=== PATIENT | female | born 1985 | race Caucasian/White ===

== ENCOUNTER 2021-03-03 21:35 | Emergency (ER) | payer MEDICAID, SELFPAY ==
[2021-03-03 21:43] VITALS: BP 138/88; PULSE 99; RESP 18; TEMP 36.7; O2SAT 99; BMI 38.7
[2021-03-03 22:28] VITALS: BP 158/100; PULSE 108; RESP 24; TEMP 36.8; O2SAT 98
--- NOTE | 2021-03-03 22:38 | W.ED.DENTAL ---
HPI - Dental/Oral General: Chief complaint: Dental/Oral Stated complaint: Tooth Pain\ Ear and Eye Time Seen by Provider: 03/03/21 22:32 History of Present Illness: HPI Narrative: Patient comes in today for complaints of pain and discomfort to the right upper jaw. Patient appears in moderate pain. Respirations are even. Airway is intact. Patient is managing secretions well. Patient reports pain worsening over the last 3 days. Patient is incidentally 28 weeks . Review of Systems General: Reports: 10 or more systems reviewed and unremarkable except in HPI and below ENMT: Reports: dental pain Physical Exam Const: COMMON NORMALS: no acute distress and patient oriented x3 GENERAL APPEARANCE: cooperative HENMT: COMMON NORMALS: normocephalic, TM's normal bilaterally and Normal external nose present HEAD & SCALP: normal to inspection and normocephalic NOSE: Normal external nose present TYMPANIC MEMBRANE: TM's normal bilaterally MOUTH: other (Poor dentition, swelling to the upper second molar right jaw.) THROAT: posterior oropharynx normal Eye: GENERAL EYE: appearance normal, both eyes and all related structures Neck/C-Spine: COMMON NORMALS: full ROM Lymph: LYMPHATIC: no lymphadenopathy noted Chest: COMMONS NORMALS: normal inspection of the chest Resp: COMMON NORMALS: normal respiratory effort EFFORT & INSPECTION: Yes able to speak in complete sentences Cardio: COMMON NORMALS: regular rate and regular rhythm RATE: regular rate RHYTHM: regular rhythm GI: COMMON NORMALS: non-tender Back/Pelvis: COMMON NORMALS: thoracic and lumbar spine normal to inspection Extremity: COMMON NORMALS: normal to inspection Neuro: COMMON NORMALS: patient oriented x3 and moves all extremities Psych: COMMON NORMALS: mental status grossly normal and cooperative Skin: COMMON NORMALS: no rashes or lesions noted GENERAL SKIN EXAM: no rashes or lesions noted Course Vital Signs: Vital signs: Vital Signs Temperature 98.3 F 03/03/21 22:28 Pulse Rate 108 H 03/03/21 22:28 Respiratory Rate 24 H 03/03/21 22:28 Blood Pressure 158/100 03/03/21 22:28 Pulse Oximetry 98 03/03/21 22:28 MDM - Dental/Oral MDM Narrative: Medical decision making narrative: Patient comes in today for complaints of dental pain. On exam we note multiple teeth with significant decay. Patient has some swelling and redness to the right upper second molar area of the gingiva. Oral mucosa is moist. No asymmetry is noted in the posterior pharynx. Patient has good and open airway. Patient manages secretions well. Vital signs are normal. Differential diagnosis includes but not limited to dental abscess, dental pain, floor mouth cellulitis. No severe illnesses noted. We will treat with antibiotic and pain medication. Patient should follow-up with dentist. Patient reported understanding. Discharge Plan Discharge Patient Disposition: Home Clinical Impression: Dental abscess Condition: Stable Prescriptions: New hydrocodone-acetaminophen 5-325 mg tablet 1 tab PO Q6H PRN (Reason: pain) Qty: 7 RF: 0 clindamycin HCl 300 mg capsule 300 mg PO Q8H 7 Days Qty: 21 RF: 0 Discharge Orders: Discharge ED (Routine); Ordered 03/03/21 Ordered By: Abiodun Hendricks Referrals: Saji Negron MD [Primary Care Provider] - Discharge Diet: Usual diet Discharge Activity: Increase activity as tolerated Patient Instructions: Dental Abscess (ED), Opioid Safety Activity Restrictions/Additional Instructions: Drink plenty of water with medication. Take antibiotics as directed. Follow-up with dentist for definitive care. Return to the ER for new concerns. Coding Level of Care Code ED Apparel Rental Clerk for Em Rocha
[2021-03-03] MEDS: HYDROcodone-acetaminophen 5-325 mg Tablet 1 TAB PO (23:07)
[2021-03-03] MEDS: clindamycin 150 mg Capsule 300 MG PO (23:08)
[2021-03-03 23:21] VITALS: BP 158/100; PULSE 108; RESP 24; TEMP 36.8; O2SAT 98
== END 2021-03-03 23:16 | disposition home or self-care (01) ==
PROVIDERS: Emergency Provider Nurse Practitioner Family; PCP Family Medicine
DX: K04.7 Periapical abscess without sinus (principal)
CPT/HCPCS: 99283

== ENCOUNTER 2021-04-21 01:00 | Inpatient (IN) | payer MEDICAID, SELFPAY ==
[2021-04-21] VITALS (24 sets, daily range): BP systolic 113–137; BP diastolic 59–96; PULSE 53–87; RESP 15–18; TEMP 36.4–36.9; O2SAT 96–100; BMI 39.8
[2021-04-21 00:48] LABS: Nitrazine Paper, PH Inconclusive
[2021-04-21 00:57] LABS: Actim Prom Positive
[2021-04-21] MEDS: clindamycin 900 MG/50 ML PREMIX 100 MG IV (01:30)
[2021-04-21] MEDS: metoclopramide 5 mg/mL SDV 2 mL 10 MG IVP (01:44)
[2021-04-21] MEDS: lactated ringers 1,000 ML 999 ML IV (01:45)
[2021-04-21] MEDS: citric acid-sodium citrate 30 mL UDC PO (01:45)
[2021-04-21] MEDS: gentamicin inj 140 MG in sodium chloride 0.9% (100 ml) 100 ML 103.5 MG IV (01:45)
[2021-04-21] MEDS: famotidine 20 mg/2 mL INJ IVP (01:45)
--- NOTE | 2021-04-21 01:46 | PM.HP ---
Providers/Chief Complaint Primary Care Provider: Saji Negron MD Chief Complaint: POSSIBLE SROM History of Present Illness Tiffany Courtney is a 35 year old female who is 36 weeks and 5 days gestation had spontaneous rupture membranes at home. She said approximately 11:11 PM she had a large amount of fluid that came out. She is not jaye much. She has had 1 previous section and was planning for repeat section. She has been followed by Dr. Negron through her without significant problems. Her blood type was O-. Group B strep is pending. The remainder of her lab work and course has been without problems. Review of Systems Const: Denies: fever(s), chills or fatigue Eyes: Denies: change in vision ENMT: Denies: throat pain Card: Reports: edema (Trace); Denies: chest pain or palpitations Resp: Denies: dyspnea or non-productive cough GI: Denies: abdominal pain or nausea : Denies: vaginal bleeding (She has had spontaneous rupture of membranes.) Musc: Denies: neck pain Neuro: Denies: headache(s), numbness in extremities or dizziness Psych: Reports: anxiety (Mild.) and other (She does smoke marijuana) Endo: Denies: hot flashes Medications/Allergies Home Medications Medication Instructions Recorded Confirmed Last Taken Type hydrocodone-acetaminophen 1 tab PO Q6H PRN #7 tab 03/03/21 Unknown Rx Allergies Allergy/AdvReac Type Severity Reaction Status Date / Time amoxicillin Allergy Unknown Verified 03/03/21 21:51 Penicillins Allergy Unknown Verified 03/03/21 21:51 PFSH Acute Female Reproductive History: : 2 Vitals/I&O/Wt Last Vital Signs Resp 18 04/21/21 00:41 Weight last 48 hrs Weight 92.533 kg Weight 92.533 kg Physical Exam Const: COMMON NORMALS: no acute distress and healthy appearing HENMT: COMMON NORMALS: moist oral mucous membranes Resp: COMMON NORMALS: normal respiratory effort, No retractions, No use of accessory muscles and clear to auscultation bilaterally Cardio: COMMON NORMALS: regular rate, regular rhythm and No murmurs present (Cardio) GI: COMMON NORMALS: Soft to palpation and non-tender; negative for no masses ( She is ) Extremity: COMMON NORMALS: normal to inspection and full ROM; negative for no calf tenderness and negative for no pedal edema NARRATIVE EXTREMITY EXAM: Trace Neuro: COMMON NORMALS: CN's II-XII intact bilaterally, moves all extremities, no focal motor deficits and no sensory deficits noted Psych: COMMON NORMALS: mental status grossly normal, Normal thought process present, cooperative and normal affect Data : 04/21/21 01:25 A&P Assessment and plan (1) 36 weeks gestation of : Patient has had spontaneous rupture of membranes at home with previous section. Plan repeat section earlier this morning. Status: Acute (2) Previous delivery affecting , antepartum: Status: Acute (3) Spontaneous rupture of membranes: Status: Acute Attestations Medical Necessity Statement*: This patient with a previously she requires admission to the hospital for repeat section. I expect her hospital stay to be greater than 2 midnights. Time Spent in Patient Care: 16 - 35 minutes Coding Level of Care Code Acute Solar Sales Representative And Assessor for Chg Fwd Diagnoses 36 weeks gestation of Z3A.36 Previous delivery affecting , antepartum O34.219 Spontaneous rupture of membranes
--- NOTE | 2021-04-21 02:00 | ANES.PREANE2 ---
Pre-Anesthetic Assessment Pre-Anesthetic Assessment: Height/Weight: Height 1.52 m Weight 92.533 kg Resp 18 04/21/21 01:10 Preop Diagnosis: IUP 37wk Was Beta Roman taken within 24 hours: N/A Was Clonidine taken within 24 hours: N/A Social: Social History: Tobacco (marijuana) Exam: Pre-Anes Outpt Exam: alert, oriented x 3, clear to auscultation bilaterally and regular rate & rhythm Airway: Submandibular: WNL Cervical ROM: WNL MP: 2 Additional comments: very poor dentition History/ROS: No significant history except as noted Pulmonary: Pulmonary: Asthma CV/HEM: CV/HEM: None reported : : None reported Hepatic: Hepatic: None reported GI: GI: GERD Metabolic: Metabolic: None reported Musc/skel: Musc/skel: None reported Neuropsych: Neuropsych: Anxiety Anesthetic Plan: ASA status: 2 Anesthesia: Anesthesia Evaluation and Regional (specify below) Risk of > 500 ml blood loss (7ml/kg in children): Yes, adequate IV access and fluids planned [facility] Anesthesia Female Reproductive History: : 2 Data Anesthesia CBC & Chem 7: 04/21/21 01:25 Other Labs: Laboratory Results - last 48 hr 04/21/21 04/21/21 04/21/21 00:30 00:45 01:25 WBC 14.3 H RBC 3.39 L Hgb 10.2 L Hct 31.2 L MCV 92.0 MCH 30.1 MCHC 32.7 RDW 13.4 Plt Count 433 H MPV 9.8 Neut % (Auto) 70.6 Lymph % (Auto) 20.4 [place] % (Auto) 6.5 Eos % (Auto) 1.5 Baso % (Auto) 0.4 Neut # (Auto) 10.08 H Lymph # (Auto) 2.9 [place]upe # (Auto) 0.9 Eos # (Auto) 0.2 Baso # (Auto) 0.1 Nucleated RBC % (auto) 0 Nucleated RBCs # 0.0 Insulin-like GF I Positive Urine Opiates Screen Negative Ur Barbiturates Screen Negative Ur Phencyclidine Scrn Negative Ur Amphetamines Screen Negative U Benzodiazepines Scrn Negative Urine Cocaine Screen Negative U Marijuana (THC) Screen Negative Cardiac Studies: No Data to Display
[2021-04-21 02:05] LABS: Amphetamines Screen Urine Negative (Negative); Barbiturates Screen Urine Negative (Negative); Benzodiazepines Screen Urine Negative (Negative); Cocaine Screen Urine Negative (Negative); Opiate Screen Urine Negative (Negative); PCP Screen Urine Negative (Negative); THC Screen Urine Negative (Negative)
[2021-04-21 02:05] LABS: Basophils # 0.1 10^3/uL (0.0-0.1); Basophils % 0.4 %; Eosinophils # 0.2 10^3/uL (0.0-0.8); Eosinophils % 1.5 %; Hematocrit 31.2 % (37.0-47.0); Hemoglobin 10.2 g/dL (11.5-15.3); Lymphocytes # 2.9 10^3/uL (0.8-4.8); Lymphocytes % 20.4 %; Mean Corpuscular HGB Conc 32.7 g/dL (30.0-36.0); Mean Corpuscular Hemoglobin 30.1 pg (28.0-34.0); Mean Platelet Volume 9.8 fL (7.4-10.4); Monocytes # 0.9 10^3/uL (0.2-0.9); Monocytes % 6.5 %; Neutrophils # 10.08 10^3/uL (1.8-7.7); Neutrophils % 70.6 %; Nucleated Red Blood Cells % 0 %; Platelet Count 433 10^3/cmm (130-400); Red Blood Count 3.39 10^6/uL (4.1-5.3); Red Cell Distribution Width 13.4 % (12.1-15.1); White Blood Count 14.3 10^3/uL (4.0-10.0)
--- NOTE | 2021-04-21 03:20 | P.OP_ITS ---
Operative Report Date of procedure: April 21, 2021 Pre-op Diagnosis: 1. Previous Pre-op Diagnosis: 1. Previous 2. Spontaneous rupture membranes 3.36-week estimated gestational age 4. Desires sterilization Post-op diagnosis: same Procedure Done: 1. Repeat lower transverse section 2. Intraoperative bilateral tubal ligation Specimens removed/disposition: 1. Male with a weight of 6 pounds 2 ounces and Apgars of 8 and 9 2. Placenta with a three-vessel cord delivered intact 3. Bilateral fallopian tube segments with the right segment being tagged Pathology: other ( Bilateral fallopian tube segments with the right segment being tagged) Surgeon: Spenser Jarrell High Density Finishing Operator: Saji Negron Anesthesia: Other (Spinal) Estimated blood loss (mL): 500 Condition: stable Disposition: floor (OB) Procedure: The patient was brought back to the operating room where she was prepped and draped in usual sterile fashion. Anesthesia was found to be adequate. A lower transverse skin incision was then made with a #10 blade. I then dissected down to the underlying subcutaneous tissue until arriving at the prerectal fascia. The fascia was then nicked with the scalpel bilaterally. The fascial incisions were then carried laterally with Brock scissors. Attention was then turned to the superior aspect of the incision which was grasped with kochers and tented up away from the underlying rectus abdominis muscles. The muscles were then dissected away from the fascia manually, and later with Brock scissors. Attention was then turned to the inferior aspect of the incision, and the fascia was dissected away from the underlying muscle in similar fashion. The rectus abdominis muscles were then spread manually. The peritoneum was entered manually. Excellent visualization of the uterus was noted. A lower transverse uterine incision was then made with a #10 blade. Upon arriving at the intrauterine cavity, the uterine incision was then extended manually. The was noted to be in vertex position. The baby was delivered without difficulty. After delivery of the head, the mouth and nose were suctioned at the site of the incision. There was no meconium. There was no nuchal cord. The remainder of the body was then delivered and placed on the abdomen. The cord was cut and clamped. The baby was then handed to the waiting nurse. The placenta was removed intact. The uterus was externalized. The intrauterine cavity was cleansed of any remaining debris. The uterine incision was reapproximated in 2 layers. The first layer was performed with 0 Vicryl in a running locked stitch. The second layer was an imbricating stitch also using 0 Vicryl. Attention was then turned to the left fallopian tube which was ligated cut and cauterized with 0 chromic using a modified [place] technique. Attention was then turned to the right fallopian tube which was also ligated and cut and cauterized in similar fashion. The right segment was tagged. The uterus was replaced into the abdomen. The peritoneum was then irrigated with warm saline. I reexamined the uterine incision and found it to be hemostatic. The rectus abdominis muscles were then reapproximated using 0 Vicryl in a running stitch. The fascia was then reapproximated using 0 Vicryl in running stitch. The subcutaneous tissue was reapproximated using 0 Vicryl in a running stitch. The skin was reapproximated using joão. A sterile dressing was placed. All counts were correct x2. Both the mother and baby were in stable condition.
[2021-04-21] MEDS: dextrose 5%-lactated ringers 1,000 ML 125 ML IV (04:16)
[2021-04-21] MEDS: diphenhydrAMINE 50 mg/mL SDV 1mL 25 MG IVP (05:04)
[2021-04-21] MEDS: ketorolac 30 mg/mL INJ IVP ×2 (05:04→10:33)
--- NOTE | 2021-04-21 07:23 | ANE.PACU2 ---
Inpatient post-anesthesia follow up: Airway intact: Yes Vital signs: Temperature 97.5 F Pulse Rate 68 Respiratory Rate 16 Blood Pressure 122/59 Pulse Oximetry 96 Oxygen Delivery Me thod Room Air Oxygen Flow Rate Fraction of Inspir ed Oxygen Hydration adequate: Yes Nausea and vomiting: No Pain level: 2 Mental status: Baseline
[2021-04-21] MEDS: prenatal vitamin Capsule 1 CAP PO (09:37)
[2021-04-21 16:41] LABS: Hemoglobin 10.5 g/dL (11.5-15.3); Mean Corpuscular HGB Conc 32.8 g/dL (30.0-36.0); Mean Corpuscular Hemoglobin 30.1 pg (28.0-34.0); Mean Corpuscular Volume 91.7 fl (81-99); Mean Platelet Volume 9.9 fL (7.4-10.4); Platelet Count 424 10^3/cmm (130-400); Red Blood Count 3.49 10^6/uL (4.1-5.3); Red Cell Distribution Width 13.3 % (12.1-15.1); White Blood Count 16.9 10^3/uL (4.0-10.0)
[2021-04-21] MEDS: simethicone 80 mg Chew PO (19:36)
[2021-04-21] MEDS: ibuprofen 800 mg tablet PO (20:59)
[2021-04-22 04:51] VITALS: BP 109/68; PULSE 64; RESP 15; TEMP 36.9
--- NOTE | 2021-04-22 07:14 | PM.OBGYDC ---
Discharge Providers LOGISTICS LOSS PREVENTION MANAGER Date of Admission: 04/21/21 01:00 Date of Discharge: 04/22/21 Attending Provider at Admission: Spenser Jarrell MD Attending Provider at Discharge: Spenser Jarrell MD Primary Care Provider: Saji Negron MD Diagnoses at Discharge Discharge Diagnosis (1) 36 weeks gestation of : Status: Acute (2) Previous delivery affecting , antepartum: Status: Acute (3) Spontaneous rupture of membranes: Status: Acute Reason for Visit Reason for Visit: POSSIBLE SROM Hospital Course Hospital Course The patient presented to the hospital at 36 weeks estimated gestational age with spontaneous rupture of membranes. The patient had a planned repeat and bilateral tubal ligation that was scheduled at 39 weeks. After confirming that her membranes had ruptured, we proceeded with a section. The procedures went well. She did extremely well . She breast-fed her baby without difficulty. Her bleeding was within normal limits. Her pain was well controlled. She was passing gas and had a regular diet on the day of surgery. She was discharged home in good condition. Information Peripartum Data: Infant Delivery Method: Physical Exam Narrative: EXAM NARRATIVE: She is in no acute distress Lungs are clear auscultation bilaterally Her heart has a regular rate and rhythm Her fundus is below the umbilicus and firm Her dressing is clean, dry and intact Her extremities have trace edema Urinary Catheter Management^: Ragland: Cath Placed During This Visit: yes Urinary Catheter Date of Insertion: 04/21/21 Urinary Catheter Time of Insertion: 02:20 Discharge Data Data Completed and Pending: Pending at discharge Category Date Time Status Pathology: Surgic al [PTH] Routine Pth 04/21/21 08:58 Received Labs from last 24 hours 04/21/21 15:45 WBC 16.9 H RBC 3.49 L Hgb 10.5 L Hct 32.0 L MCV 91.7 MCH 30.1 MCHC 32.8 RDW 13.3 Plt Count 424 H MPV 9.9 Vitals: Last Vital Signs Temp 98.4 F 04/22/21 04:51 Pulse 64 04/22/21 04:51 Resp 15 04/22/21 04:51 BP 109/68 04/22/21 04:51 Pulse Ox 100 04/21/21 22:00 Discharge Plan Discharge Patient Disposition: Home Condition: Stable Prescriptions: New ibuprofen 800 mg Tablet 800 mg PO TID Qty: 45 RF: 0 hydrocodone-acetaminophen 5-325 mg Tablet 1 tab PO Q6H PRN (Reason: Moderate To Severe Pain) Qty: 20 RF: 0 docusate sodium 100 mg Capsule 100 mg PO BID Qty: 14 RF: 0 Discontinued hydrocodone-acetaminophen 5-325 mg tablet 1 tab PO Q6H PRN (Reason: pain) Qty: 7 RF: 0 Discharge Orders: Discharge Order (Routine); Ordered 04/22/21 Ordered By: Spenser Jarrell Referrals: Spenser Jarrell MD [Physician] - 4-7 days (Please set up appointment with Dr. Negron at 6 weeks . Thanks) Discharge Diet: Usual diet Discharge Activity: Limit activity as instructed Patient Instructions: Opioid Safety Discharge Attestations LOGISTICS LOSS PREVENTION MANAGER Time Spent in Discharge Care*: less than 30 min Specific Discharge Activities: Specific discharge activities: educating patient and educating and/or supporting family/caregiver Coding Level of Care Code Acute Product Development Intern for Chg Fwd Diagnoses 36 weeks gestation of Z3A.36 Previous delivery affecting , antepartum O34.219 Spontaneous rupture of membranes
[2021-04-22] MEDS: ibuprofen 800 mg tablet PO (08:27)
[2021-04-22] MEDS: prenatal vitamin Capsule 1 CAP PO (08:27)
[2021-04-22 10:00] VITALS: BP 115/70; PULSE 60; RESP 16; TEMP 36.8; O2SAT 100
[2021-04-22 13:00] VITALS: BP 125/72; PULSE 70; RESP 16; O2SAT 100
[2021-04-22 13:05] VITALS: BP 125/72; PULSE 70; RESP 16; O2SAT 100
== END 2021-04-22 13:05 | disposition home or self-care (01) | DRG 784 ==
LOC: OPOB 03:06 → OBGYN 03:06
PROVIDERS: Admitting Provider Family Medicine; PCP Family Medicine; Visit Provider Family Medicine
PROC: 10D00Z1 Extraction of Products of Conception, Low, Open Approach (ICD-10-PCS; CPT 59514; principal; 2021-04-21 02:10)
DX: O34.211 Maternal care for low transverse scar from previous cesarean delivery (principal); O36.0930 Maternal care for other rhesus isoimmunization, third trimester, not applicable or unspecified; Z3A.36 36 weeks gestation of pregnancy; Z37.0 Single live birth; O99.334 Smoking (tobacco) complicating childbirth; F17.210 Nicotine dependence, cigarettes, uncomplicated; O75.89 Other specified complications of labor and delivery; K21.9 Gastro-esophageal reflux disease without esophagitis; J45.909 Unspecified asthma, uncomplicated
CPT/HCPCS: 12345; 36415; 51702; 58611; 59025; 59409; 80306; 83986; 84112; 85025; 85027; 88302; 96374; 96375; J1100; J1200; J1580; J1885; J2274; J2405; J2765; J3490

== ENCOUNTER 2022-04-15 17:16 | Emergency (ER) | payer MEDICAID, SELFPAY ==
[2022-04-15 17:43] VITALS: PULSE 98; RESP 16; TEMP 36.6; O2SAT 100; BMI 32.2
[2022-04-15 19:13] LABS: Add Urine Culture? No; Add Urine Microscopic? YES; Bacteria Urine TRACE /hpf; Bilirubin Urine Neg (Negative); Blood Urine 3+ (Negative); Glucose Urine UA Norm (Normal); Ketones Urine Negative (Negative); Leukocyte Esterase Urine Negative (Negative); Mucus Urine 2+ /hpf; Nitrate Urine Negative (Negative); Protein Urine Neg (Negative); RBC Urine 50-80 /hpf (0-2); Squamous Epithelial Cell Urine 15-25 /hpf (0-5); Urine Appearance Clear (CLEAR); Urine Color Yellow (Yellow); Urobilinogen Urine Neg (Negative); WBC Urine 0-4 /hpf (0-5); pH Urine 6 (5-7)
== END 2022-04-15 19:08 | disposition left against medical advice (07) ==
PROVIDERS: Physician Assistant; Emergency Provider Family Medicine; PCP Family Medicine
DX: Z53.21 Procedure and treatment not carried out due to patient leaving prior to being seen by health care provider (principal)
CPT/HCPCS: 81001

== ENCOUNTER 2025-03-07 15:49 | Emergency (ER) | payer MEDICAID, SELFPAY ==
[2025-03-07 15:53] VITALS: BP 142/92; PULSE 108; TEMP 36.6; O2SAT 100
[2025-03-07 16:26] LABS: HCG Qualitative Urine. Negative (Negative)
[2025-03-07 17:01] LABS: Hematocrit 40.6 % (36-47); Hemoglobin 13.40 g/dL (11.27-16.99); Mean Corpuscular HGB Conc 33.0 g/dL (30-55); Mean Corpuscular Hemoglobin 29.9 pg (27-33); Mean Corpuscular Volume 90.6 fl (85-98); Nucleated Red Blood Cells % 0 %; Platelet Count 335 10^3/cmm (157-399); Red Blood Count 4.48 10^6/uL (3.85-5.65); White Blood Count 12.50 10^3/uL (3.29-11.43)
[2025-03-07 17:29] LABS: Alanine Aminotransferase 15 U/L (0-33); Albumin Level 3.9 g/dL (3.5-5.2); Alkaline Phosphatase 69 U/L (35-105); Anion Gap 16.6 (5-19); Aspartate Amino Transferase 14 U/L (0-32); Blood Urea Nitrogen 10 mg/dL (6-20); Calcium 8.8 mg/dL (8.5-10.5); Carbon Dioxide 22 mmol/L (22-29); Chloride 104 mmol/L (98-107); Globulin 3.0 g/dL (1.3-4.6); Glucose 92 mg/dL (65-115); Lipase 20 U/L (13-60); Osmolality Calculated 287 mOsm/kg (285-295); Potassium 3.6 mmol/L (3.5-5.1); Sodium 139 mmol/L (136-145); Total Protein 6.9 g/dL (6.6-8.7)
--- NOTE | 2025-03-07 17:54 | CTR_ITS ---
PROCEDURE INFORMATION: Exam: CT Abdomen And Pelvis Without Contrast Exam date and time: 03/07/2025 6:02 PM Age: 39 years old Clinical indication: Abdominal pain; Localized; Lower; Prior surgery; Surgery date: 6+ months; Surgery type: Csection; Pelvic pain with dysuria. ; Additional info: Abd pain TECHNIQUE: Imaging protocol: Computed tomography of the abdomen and pelvis without contrast. Radiation optimization: All CT scans at this facility use at least one of these dose optimization techniques: automated exposure control; mA and/or kV adjustment per patient size (includes targeted exams where dose is matched to clinical indication); or iterative reconstruction. COMPARISON: US OB limited [id number] 01/31/2021 2:37 PM RADIATION DOSE METRICS: Total DLP (mGy-cm): 843.4 FINDINGS: Diaphragm: Small hiatal hernia. Liver: Focal hepatic hypoattenuation near the falciform ligament consistent with focal sparing or infiltration. No suspicious hypoattenuating lesions. Gallbladder and biliary ducts: Normal. No calcified stones. No ductal dilation. Pancreas: Normal. No ductal dilation. Spleen: Normal. No splenomegaly. Adrenal glands: Normal. No mass. Kidneys and ureters: No hydronephrosis or obstructing renal stones. No significant perinephric fat stranding. Stomach and bowel: Unremarkable. No obstruction. No mucosal thickening. Appendix: No evidence of appendicitis. Intraperitoneal space: Unremarkable. No free air. No significant fluid collection. Vasculature: Unremarkable. No abdominal aortic aneurysm. Lymph nodes: Unremarkable. No enlarged lymph nodes. Urinary bladder: There is mild perivesical fat stranding, which can be seen with cystitis. Reproductive: Unremarkable as visualized. Bones/joints: Unremarkable. No acute fracture. Soft tissues: Unremarkable. CT/CT abdomen pelvis con [id number] IMPRESSION: Mild perivesical fat stranding and bladder wall thickening, which may be seen with cystitis.
--- NOTE | 2025-03-07 18:00 | ED_ITS ---
HPI - Female Genitourinary 2 General: Chief complaint: Urogenital-Female Stated complaint: urinary Time Seen by Provider: 03/07/25 17:52 History of Present Illness: 39-year-old female with history of multi ple renal colic, however it has been sometime since she has had a urolithiasis that presents with suprapubic tenderness and dysuria. Patient states it feels like UTI. Denies any change in her normal back pain. Admits to nausea without emesis. Associated symptoms: Deny abdominal pain, headache(s) or nausea Related Data Previous Rx's ?Medication ?Instructions ?Recorded docusate sodium 100 mg capsule 100 mg PO BID #14 caps 04/22/21 hydrocodone 5 mg-acetaminophen 325 1 tab PO Q6H PRN Mo derate To 04/22/21 mg tablet Severe Pain #20 tabs ibuprofen 800 mg tablet 800 mg PO TID #45 tabs 04/22 cefdinir 300 mg capsule 300 mg PO BID 10 days #20 ca ps 03/07/25 ondansetron 4 mg disintegrating 4 mg PO Q8H PRN nausea and 03/07/25 tablet vomiting 4 days #14 tabs Allergies Allergy/AdvReac Type Severity Reaction Status Date / Time amoxicillin Allergy Unknown Verified 03/07/25 15:58 Penicillins Allergy Unknown Verified 03/07/25 15:58 Review of Systems 2 Const: Denies: fever(s), chills or fatigue Eyes: Denies: change in vision ENMT: Denies: throat pain Card: Denies: chest pain, palpitations or edema (Trace) Resp: Denies: dyspnea or non-productive cough GI: Denies: abdominal pain or nausea : Reports: flank pain, difficulty voiding and dysuria; Denies: vaginal bleeding (She has had spontaneous rupture of membranes.) Musc: Denies: neck pain Neuro: Denies: headache(s), numbness in extremities or dizziness Psych: Reports: anxiety (Mild.) and other (She does smoke marijuana) Endo: Denies: hot flashes Physical Exam 2 Const: COMMON NORMALS: no acute distress and patient oriented x3 GENERAL APPEARANCE: cooperative HENMT: COMMON NORMALS: normocephalic, TM's normal bilaterally and Normal external nose present HEAD & SCALP: normal to inspection and normocephalic NOSE: Normal external nose present TYMPANIC MEMBRANE: TM's normal bilaterally MOUTH: other (Poor dentition, swelling to the upper second molar right jaw.) THROAT: posterior oropharynx normal Eye: GENERAL EYE: appearance normal, both eyes and all related structures Neck/C-Spine: COMMON NORMALS: full ROM Lymph: LYMPHATIC: no lymphadenopathy noted Chest: COMMONS NORMALS: normal inspection of the chest Resp: COMMON NORMALS: normal respiratory effort EFFORT & INSPECTION: Yes able to speak in complete sentences Cardio: COMMON NORMALS: regular rate and regular rhythm RATE: regular rate RHYTHM: regular rhythm GI: COMMON NORMALS: non-tender : BLADDER/KIDNEY EXAM: Yes CVA tenderness on the left Back/Pelvis: COMMON NORMALS: thoracic and lumbar spine normal to inspection GENERAL BACK: Yes CVA tenderness Extremity: COMMON NORMALS: normal to inspection Neuro: COMMON NORMALS: patient oriented x3 and moves all extremities Psych: COMMON NORMALS: mental status grossly normal and cooperative Skin: COMMON NORMALS: no rashes or lesions noted GENERAL SKIN EXAM: no rashes or lesions noted Course 2 Vital Signs: Vital signs: Vital Signs Temperature 97.9 F 03/07/25 15:53 Pulse Rate 82 03/07/25 20:35 Respiratory Rate 16 03/07/25 20:35 Blood Pressure 108/67 03/07/25 20:35 Pulse Oximetry 99 03/07/25 20:35 Oxygen Delivery Me thod Room Air 03/07/25 19:59 MDM - Female Medical Decision Making Patient is a 39-year-old female with history of renal colic. CT was obtained since patient had hematuria. This is negative for renal colic at this time. This appears to be straightforward pyuria. Urine was sent for culture. Patient was appropriately treated with Rocephin, and cefdinir sent to the pharmacy. All of her questions were answered to her satisfaction. Medical Records I reviewed the patient's medical records. Lab Data 03/07/25 16:54 03/07/25 16:54 Radiology Impressions Abdomen/Pelvis CT 03/07/25 17:54 IMPRESSION: Mild perivesical fat stranding and bladder wall thickening, which may be seen with cystitis. Laboratory Results WBC 12.50 10^3/uL (3.29-11.43) H 03/07/25 16:54 RBC 4.48 10^6/uL (3.85-5.65) 03/07/25 16:54 Hgb 13.40 g/dL (11.27-16.99) 03/07/25 16:54 Hct 40.6 % (36-47) 03/07/25 16:54 MCV 90.6 fl (85-98) 03/07/25 16:54 MCH 29.9 pg (27-33) 03/07/25 16:54 MCHC 33.0 g/dL (30-55) 03/07/25 16:54 RDW 13.6 % (12.1-15.1) 03/07/25 16:54 Plt Count 335 10^3/cmm (157-399) 03/07/25 16:54 MPV 9.4 fL (7.4-10.4) 03/07/25 16:54 Neut % (Auto) 76.1 % 03/07/25 16:54 Lymph % (Auto) 16.1 % 03/07/25 16:54 [place] % (Auto) 5.4 % 03/07/25 16:54 Eos % (Auto) 2.0 % 03/07/25 16:54 Baso % (Auto) 0.2 % 03/07/25 16:54 Neut # (Auto) 9.51 10^3/uL (1.8-7.7) H 03/07/25 16:54 Lymph # (Auto) 2.0 10^3/uL (0.8-4.8) 03/07/25 16:54 [place] # (Auto) 0.7 10^3/uL (0.2-0.9) 03/07/25 16:54 Eos # (Auto) 0.3 10^3/uL (0.0-0.8) 03/07/25 16:54 Baso # (Auto) 0.0 10^3/uL (0.0-0.1) 03/07/25 16:54 Nucleated RBC % (auto) 0 % 03/07/25 16:54 Nucleated RBCs # 0.0 /100WBC 03/07/25 16:54 Sodium 139 mmol/L (136-145) 03/07/25 16:54 Potassium 3.6 mmol/L (3.5-5.1) 03/07/25 16:54 Chloride 104 mmol/L (98-107) 03/07/25 16:54 Carbon Dioxide 22 mmol/L (22-29) 03/07/25 16:54 Anion Gap 16.6 (5-19) 03/07/25 16:54 BUN 10 mg/dL (6-20) 03/07/25 16:54 Creatinine 0.5 mg/dL (0.5-0.9) 03/07/25 16:54 GFR Calculation 138.1 mL/min (90-130) H 03/07/25 16:54 Glucose 92 mg/dL (65-115) 03/07/25 16:54 Calculated Osmolality 287 mOsm/kg (285-295) 03/07/25 16:54 Calcium 8.8 mg/dL (8.5-10.5) 03/07/25 16:54 Total Bilirubin 0.6 mg/dL (0.15-1.2) 03/07/25 16:54 AST 14 U/L (0-32) 03/07/25 16:54 ALT 15 U/L (0-33) 03/07/25 16:54 Alkaline Phosphatase 69 U/L (35-105) 03/07/25 16:54 Total Protein 6.9 g/dL (6.6-8.7) 03/07/25 16:54 Albumin 3.9 g/dL (3.5-5.2) 03/07/25 16:54 Globulin 3.0 g/dL (1.3-4.6) 03/07/25 16:54 Lipase 20 U/L (13-60) 03/07/25 16:54 HCG, Qual Negative (Negative) 03/07/25 16:00 Urine Color Dark yellow (Yellow) A 03/07/25 16:00 Urine Appearance Turbid (CLEAR) A 03/07/25 16:00 Urine pH 7.0 (5-7) 03/07/25 16:00 Ur Specific [place] 1.024 (1.005-1.030) 03/07/25 16:00 Urine Protein 3+ (Negative) A 03/07/25 16:00 Urine Glucose (UA) Negative (Normal) 03/07/25 16:00 Urine Ketones 2+ (Negative) H 03/07/25 16:00 Urine Blood 3+ (Negative) A 03/07/25 16:00 Urine Nitrate Negative (Negative) 03/07/25 16:00 Urine Bilirubin Negative (Negative) 03/07/25 16:00 Urine Urobilinogen 1.0 mg/dL (Negative) 03/07/25 16:00 Ur Leukocyte Esterase 3+ (Negative) A 03/07/25 16:00 Urine RBC >100 /hpf (0-2) H 03/07/25 16:00 Urine WBC >100 /hpf (0-5) H 03/07/25 16:00 Ur Squamous Epith Cells 0-5 /hpf (0-5) 03/07/25 16:00 Amorphous Sediment Not Reportable 03/07/25 16:00 Urine Bacteria Trace /hpf (NONE) 03/07/25 16:00 Hyaline Casts 0.72 /lpf 03/07/25 16:00 All radiology interpretation(s) finalized by discharge Discharge Plan Discharge Patient Disposition: Home Clinical Impression: Pyuria due to bacterial urinary tract infection Condition: Stable Prescriptions: New cefdinir 300 mg capsule 300 mg PO BID 10 Days Qty: 20 0RF ondansetron 4 mg tablet,disintegrating 4 mg PO Q8H PRN (Reason: nausea and vomiting) 4 Days Qty: 14 0RF No Action ibuprofen 800 mg Tablet 800 mg PO TID Qty: 45 0RF hydrocodone-acetaminophen 5-325 mg Tablet 1 tab PO Q6H PRN (Reason: Moderate To Severe Pain) Qty: 20 0RF docusate sodium 100 mg Capsule 100 mg PO BID Qty: 14 0RF Discharge Orders: Discharge ED (Routine); Ordered 03/07/25 Ordered By: Nedra Wheat Referrals: Saji Negron MD [Primary Care Provider, Family Practice] Discharge Diet: Full LIquid Discharge Activity: Resume usual activity Patient Instructions: Dysuria (ED), Patient Portal & Eric Instructions Activity Restrictions/Additional Instructions: Increase fluid intake Take antibiotics as directed. Take probiotic or active culture yogurt to avoid infectious diarrhea Zoniafran has been sent to the pharmacy for nausea concerns Return to your doctor this week for follow-up. Print Language: Cypriot Coding Level of Care Code ED Project Account Manager for Em Rocha
[2025-03-07 18:22] LABS: Glucose Urine UA Negative (Normal); Nitrate Urine Negative (Negative); Specific Gravity, Urine 1.024 (1.005-1.030)
[2025-03-07 18:30] LABS: Add Urine Microscopic? YES
[2025-03-07 18:37] VITALS: BP 130/88; PULSE 84; O2SAT 98
[2025-03-07] MEDS: ondansetron 2 mg/ML SDV 2 mL 4 MG IVP (19:29)
[2025-03-07 19:59] VITALS: BP 115/58; PULSE 88; RESP 16; O2SAT 99
[2025-03-07] MEDS: cefTRIAXone 1,000 mg SDV 1000 MG IVP (20:23)
[2025-03-07 20:35] VITALS: BP 108/67; PULSE 82; RESP 16; O2SAT 99
== END 2025-03-07 20:37 | disposition home or self-care (01) ==
PROVIDERS: Emergency Medicine; Emergency Provider Physician Assistant; PCP Family Medicine
DX: N39.0 Urinary tract infection, site not specified (principal)
CPT/HCPCS: 36415; 74176; 80053; 81001; 81025; 83690; 85025; 87086; 96361; 96374; 96375; 99285; J0696; J1885; J2405; J7030